=== PATIENT | male | born 2000 | race Caucasian/White ===

== ENCOUNTER 2023-12-29 07:33 | Outpatient (AMB) | payer OTHER, SELFPAY ==
[2023-12-29 07:35] VITALS: BP 114/66; PULSE 81; O2SAT 98; BMI 21.0
--- NOTE | 2023-12-29 07:35 | MHC.PC.OV ---
Vital Signs 12/29/23 07:35 Height 5 ft 10.4 in Weight 148 lb BMI 21.0 BP 114/66 Blood Pressure Location Rt brachial Position Sitting Pulse 81 Pulse Source Pulse Oximeter Pulse Oximetry (%) 98 Oxygen Delivery Method Room Air Intake Visit Reasons: SANITARY ENGINEER, establish care Intake Note: Pt is here today for a New patient visit PE. Allergies No Known Allergies Allergy (Verified 12/29/23 07:38) Medication List - Last Reconciled 12/29/23 by Rebeca Holt MD No Known Home Meds Tobacco use date assessed: 12/29/23 Dental Screening Dental Screen Date: 12/29/23 Did you have a dental visit in the last 12 months?: Yes Did you have a dental problem in the last 6 months where you did not have access to dental care?: No Was dental information given to patient?: Patient has dentist HPI SANITARY ENGINEER, establish care HPI Details Patient presents for new patient physical. 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 Right ankle pain resolved after physical therapy and a course of NSAIDs. Patient reports chronic lower back pain and stiffness worse in the morning occasionally lasting throughout the day. He denies joint swelling pain or stiffness, fever chills weight loss. Patient does not exercise regularly. PENDING SALE TO [facility] Surgical History No pertinent past surgical history Family History Father Hypertension Mother No problems noted. Social History (Updated 12/29/23 @ 08:48 by Rebeca Holt MD) Household Members Other:: lives with family, student at [employer] Housing: House Patient Tobacco Use Status: Never used Tobacco e-Cigarette/Vaping Use: Never Used service: No Current occupational status: employed and student Cognitive needs: No Hearing needs: No Vision needs: Yes Questionnaire PHQ-9 Over the last 2 weeks, how often have you been bothered by any of the following problems? 1. Little interest or pleasure in doing things: several days 2. Feeling down, depressed, or hopeless: several days 3. Trouble falling or staying asleep, or sleeping too much: nearly every day 4. Feeling tired or having little energy: more than half the days 5. Poor appetite or overeating: several days 6. Feeling bad about yourself - or that you are a failure or have let yourself or your family down: several days 7. Trouble concentrating on things, such as reading the newspaper or watching television: not at all 8. Moving or speaking so slowly that other people could have noticed. Or the opposite - being so fidgety or restless that you have been moving around a lot more than usual: not at all 9. Thoughts that you would be better off or of hurting yourself in some way: not at all Total score: 9 Depression Screening Interpretation: Negative Depression Screening Done: Yes Source: Developed by Drs. Wm Razo, Zahraa Driscoll, Garrett Sun and colleagues, with an educational bean from [employer]. Thrive Questionnaire Date Thrive assessed: 12/29/23 I am a: Patient What is your living situation today?: I have a steady place to live Within the past 12 months, did the food you bought not last and you didn't have the money to get more?: Never true Within the past 12 months, did you worry whether your food would run out before you got money to buy more?: Never true Do you have trouble paying for medicines?: No Do you have trouble getting transportation to medical appointments?: No Do you have trouble paying your heating and electricity bill?: No Do you have trouble taking care of your child, family member or friend?: No Do you have trouble with day-to-day activities such as bathing, preparing meals, shopping, managing finances, etc.?: No Are you currently unemployed and looking for a job?: I choose not to answer this question Are you interested in more education?: Yes Please select the resources that you would like help with: Housing/Jail Currently or been in a relationship where the following occur: No concerns reported THRIVE Score: 0 AUDIT C Alcohol Use Questionnaire (AUDIT-C) 1. How often do you have a drink containing alcohol?: 2-4 times a month 2. How many drinks containing alcohol do you have on a typical day when you are drinking?: 1 or 2 3. How often do you have six or more drinks on one occasion?: Never Total Score: 2 TAMIKO-7 AMB Questionnaire TAMIKO-7 Date TAMIKO - 7 assessed: 12/29/23 Feeling nervous, anxious, or on edge: 1 = Several days Not being able to stop or control worryin = Several days Worrying too much about different things: 1 = Several days Trouble relaxin = Several days Being so restless that it is hard to sit still: 0 = Not at all Becoming easily annoyed or irritable: 2 = More than half the days Feeling afraid as if something awful might happen: 1 = Several days Total TAMIKO-7 score (0-4 normal; 5-9 mild; 10-14 moderate; 15-21 severe): 7 Source: Developed by Drs. Wm Razo, Zahraa Driscoll, Garrett Sun and colleagues, with an educational bean from [employer]. Review of Systems Const All systems reviewed & are unremarkable except as noted in HPI and below Reports no additional complaints Eyes Reports no additional complaints ENT Reports no additional complaints Card Reports no additional complaints Resp Reports no additional complaints GI Reports no additional complaints Reports no additional complaints Physical exam (Primary Care) Vital Signs: Last Vital Signs Pulse 81 12/29/23 07:35 BP 114/66 12/29/23 07:35 Pulse Ox 98 12/29/23 07:35 Oxygen Delivery Method Room Air 12/29/23 07:35 BMI result Body Mass Index 21.0 Tobacco/Smoking Status: Tobacco use Status Tobacco use date assessed 12/29/23 12/29/23 07:41 Patient Tobacco Use Status Never used Tobacco 12/29/23 07:41 e-Cigarette/Vaping Use Never Used 12/29/23 07:41 PHQ-9: PHQ-9 Score PHQ-9: Total score 9 12/29/23 07:41 Depression Screening Interpretation: Negative Thrive Assessment: Date of Thrive Assessment Date Thrive assessed 12/29/23 12/29/23 07:41 Currently or been in a relationship where the following occur: No concerns reported Const General: no acute distress HENMT Head: Yes normal to inspection Ears: hearing grossly normal bilaterally General nose exam: Normal external nose present Face and sinus: Yes normal facial exam Mouth: Normal oral and palatal mucosa present Teeth and gingiva: dentition normal Throat: Yes posterior oropharynx normal Eyes General: appearance normal, both eyes and all related structures Neck Neck: Yes no lymphadenopathy and Yes supple Chest Chest palpation & inspection: normal inspection of the chest Resp Effort & Inspection: normal respiratory effort GI Inspection: Yes normal to inspection Palpation (GI): Soft to palpation Percussion: Yes normal to percussion Auscultation: normal bowel sounds Assessment and Plan Assessment & Plan (1) Annual physical exam: Code(s): Z00.00 - Encounter for general adult medical examination without abnormal findings Plan: Well-balanced diet regular physical activity discussed with the patient he will have a fasting blood work today. Patient declined STD testing (2) HLA B27 (HLA B27 positive): Code(s): Z15.89 - Genetic susceptibility to other disease Plan: Referred to Rheumatology (3) Lower back pain: Code(s): M54.50 - Low back pain, unspecified Plan: Patient will schedule physical therapy at [facility] and was advised to increase physical activity including walking biking and swimming. He declined prescription medication and will take naproxen as needed. Orders: Orders Comprehensive [place]. Panel Fast Today Z00.00 - Encounter for general adult medical examination without abnormal findings, Z15.89 - Genetic susceptibility to other disease C Reactive Protein Today Z00.00 - Encounter for general adult medical examination without abnormal findings, Z15.89 - Genetic susceptibility to other disease PT Evaluation and Treatment Today M54.50 - Low back pain, unspecified Complete Blood Count Auto Diff Today Z00.00 - Encounter for general adult medical examination without abnormal findings, Z15.89 - Genetic susceptibility to other disease Lipid Panel Today Z00.00 - Encounter for general adult medical examination without abnormal findings, Z15.89 - Genetic susceptibility to other disease UA w Microscopic Today Z00.00 - Encounter for general adult medical examination without abnormal findings, Z15.89 - Genetic susceptibility to other disease TSH reflex Free T4 Today Z00.00 - Encounter for general adult medical examination without abnormal findings, Z15.89 - Genetic susceptibility to other disease Referrals Rheumatology Referral M54.50 - Low back pain, unspecified, Z15.89 - Genetic susceptibility to other disease Coding Level of Care Code New Pt Prev Care 18-39yr(75145 Diagnoses Annual physical exam Z00.00 HLA B27 (HLA B27 positive) Z15.89 Lower back pain M54.50
== END 2023-12-29 08:56 | disposition home or self-care (01) ==
PROVIDERS: Visit Provider Internal Medicine
DX: Z00.00 Encounter for general adult medical examination without abnormal findings (principal); Z15.89 Genetic susceptibility to other disease; M54.50 Low back pain, unspecified
CPT/HCPCS: 99385

== ENCOUNTER 2023-12-29 08:30 | Outpatient (REF) | payer OTHER, SELFPAY ==
[2023-12-29 10:21] LABS: Appearance Urine Clear; Color Urine Yellow; Glucose Urine UA Negative (Negative); Leukocyte Esterase Urine Negative (Negative); Nitrite Urine Negative (Negative); Specific Gravity - Urine 1.025 (1.005-1.025); Urine Blood Negative (Negative); Urine Ketones Negative (Negative); Urine Protein Negative (Neg-Trace)
[2023-12-29 10:27] LABS: Bacteria Urine None Seen (None Seen); Hyaline Casts Urine 0-2 /LPF (0-2); RBC Urine 0-2 /HPF (0-2); Squamous Epithelial Cell Urine 0-2 /HPF (0-2); WBC Urine 0-5 /HPF (0-5)
[2023-12-29 10:27] LABS: MANUAL DIFF FLAG NO
[2023-12-29 10:38] LABS: Basophils Percent Auto 0.4 % (0-2); Eosinophils Absolute Auto 0.1 X10*3/uL (0.0-0.4); Eosinophils Percent Auto 1.4 % (0-4); Hemoglobin 14.3 g/dl (14.0-18.0); Imm Gran Abs Auto 0.01 X10*3/uL (0.00-0.03); Imm Gran Pct Auto 0.2 % (0.0-0.4); Lymphocytes Absolute Auto 1.8 X10*3/uL (1.2-4.9); Lymphocytes Percent Auto 35.2 % (20-40); Mean Corpuscular HGB Conc 32.5 g/dl (31.0-36.0); Mean Corpuscular Volume 83.2 fL (80.0-98.0); Mean Platelet Volume 9.4 fL (9.4-12.4); Monocytes Absolute Auto 0.6 X10*3/uL (0.1-1.2); Monocytes Percent Auto 11.8 % (2-11); Neutrophils Absolute Auto 2.6 x10*3/uL (2.0-8.3); Platelet Count 204 X10*3/uL (160-400); Red Blood Count 5.29 X10*6/uL (4.60-5.80); Red Cell Distribution Width 12.9 % (11.0-16.0); White Blood Count 5.2 X10*3/uL (4.8-10.8)
[2023-12-29 11:05] LABS: Alanine Aminotransferase 36 U/L (0-40); Albumin Level 4.4 g/dL (3.5-5.0); Alkaline Phosphatase 47 U/L (39-117); Anion Gap 10 (12-20); Aspartate Amino Transferase 21 U/L (5-37); Bilirubin Total 0.4 mg/dL (0.0-1.0); Blood Urea Nitrogen 13 mg/dL (9-16); C Reactive Protein 0.11 mg/dL (< or = 0.50); Calcium 8.8 mg/dL (8.4-10.2); Carbon Dioxide 28 mmol/L (22-29); Chloride 106 mmol/L (96-108); Cholesterol 151 mg/dL (<200); Estimated Glomerular Filt Rate > 60; Glucose Fasting 95 mg/dL (60-99); HDL Cholesterol 53 mg/dL (>40); LDL Cholesterol Calculated 89 mg/dL (<100); Potassium 3.8 mmol/L (3.3-5.1); Sodium 140 mmol/L (135-145); Total Protein 7.5 g/dL (6.5-8.0); Triglycerides 48 mg/dL (<150)
[2023-12-29 11:23] LABS: TSH reflex Free T4 2.53 uIU/mL (0.32-4.0)
== END 2023-12-29 08:31 | disposition home or self-care (01) ==
LOC: HO.HMGCLDS 08:30
PROVIDERS: PCP Internal Medicine; Visit Provider Internal Medicine
DX: Z00.00 Encounter for general adult medical examination without abnormal findings (principal); Z15.89 Genetic susceptibility to other disease
CPT/HCPCS: 36415; 80053; 80061; 81001; 84443; 85025; 86140

== ENCOUNTER 2024-02-13 12:40 | Outpatient (AMB) | payer OTHER, SELFPAY ==
[2024-02-13 12:45] VITALS: BP 110/74; PULSE 73; TEMP 36.9; O2SAT 98; BMI 21.2
--- NOTE | 2024-02-13 12:45 | MHC.OFFWIV ---
Intake Vital Signs 02/13/24 12:45 Height 5 ft 10 in Weight 148 lb BMI 21.2 BP 110/74 Blood Pressure Location Rt brachial Position Sitting Pulse 73 Pulse Source Pulse Oximeter Temp 98.4 F Temp Source Oral Pulse Oximetry (%) 98 Oxygen Delivery Method Room Air Intake Visit Reasons: EP-arthritis pain Intake Note: pt c/o arthritis pain in LT ankle. Started Monday Patient Tobacco Use Status: Never used Tobacco Allergies No Known Allergies Allergy (Verified 02/13/24 12:53) Do you need a note to return to daycare/school/sports/work: No HPI HPI Comments History of Present Illness Details Patient is a 23-year-old male with a past medical history of arthritis complaining of left ankle pain for 3 days. He states he has been titrating ibuprofen up to his last dose of 1200 mg today which seems to finally have made the pain go away, just prior to him walking in the exam room. He states that nothing seems to make it worse he denies any trauma, or injury. He has not tried wrapping it or using ice. He states he saw a private banker a few years ago and they tried multiple different medications until they found 1 that worked and then all of a sudden 1 day his pain went away and he has not been on any medications since then. [facility] Surgical History No pertinent past surgical history Family History Father Hypertension Mother No problems noted. Social History (Updated 12/29/23 @ 08:48 by Rebeca Holt MD) Household Members Other:: lives with family, student at [employer] Housing: House Patient Tobacco Use Status: Never used Tobacco e-Cigarette/Vaping Use: Never Used service: No Current occupational status: employed and student Cognitive needs: No Hearing needs: No Vision needs: Yes Review of Systems Const All systems reviewed & are unremarkable except as noted in HPI and below Physical Exam Vital Signs: Last Vital Signs Temp 98.4 F 02/13/24 12:45 Pulse 73 02/13/24 12:45 BP 110/74 02/13/24 12:45 Pulse Ox 98 02/13/24 12:45 Oxygen Delivery Method Room Air 02/13/24 12:45 BMI result Body Mass Index 21.2 Const General: cooperative, healthy appearing, comfortable and no acute distress Orientation/consciousness: patient oriented x3 HEENT Head: Yes normal to inspection General nose exam: Normal external nose present Face and sinus: Yes normal facial exam Eyes General: appearance normal, both eyes and all related structures Neck Neck: Yes normal visual inspection Resp Effort & Inspection: normal respiratory effort and able to speak in complete sentences Neuro General: patient oriented x3 Extrem Right lower extremity: ankle Details: normal to inspection, tenderness (2 cm below the knee no malleolus, somewhat posterior) Location: posteriorly; not of the lateral malleolus, not of the medial malleolus, not of the anterior talofibular ligament and not of the achilles tendon, no edema and normal ROM; no unusual warmth, no abrasions, no lacerations and no ecchymosis and foot Details: normal capillary refill, normal to inspection, toes with normal ROM, no edema, vascular exam Details: normal capillary refill and motor-sensory exam Details: light-touch normal; no tenderness, no unusual warmth, no abrasion, no laceration and no ecchymosis Assessment & Plan Assessment & Plan (1) Ankle pain, left: Code(s): M25.572 - Pain in left ankle and joints of left foot Plan: Gave patient Balta wrap, recommended in 8 hours that he start taking naproxen every 12 hours around the clock for the next 4-5 days and see if the pain subsides. Also sent a prescription for diclofenac in case the naproxen does not work. Also provided patient with an Balta bandage so he can rapid, recommended rest and ice. If no resolution in symptoms after trialing both medications and giving it some time, he should follow up with his PCP. Plan See above Medications: New diclofenac potassium 50 mg PO BID PRN 14 tabs 0RF pain Coding Level of Care Code Est Pt Level 3 (78524) Diagnoses Ankle pain, left M25.572
== END 2024-02-13 13:19 | disposition home or self-care (01) ==
PROVIDERS: PCP Internal Medicine; Visit Provider Physician Assistant
DX: M25.572 Pain in left ankle and joints of left foot (principal)
CPT/HCPCS: 99213

== ENCOUNTER 2025-05-21 14:34 | Outpatient (AMB) | payer OTHER, SELFPAY ==
[2025-05-21 14:52] VITALS: BP 110/70; PULSE 74; RESP 17; TEMP 36.8; O2SAT 98; BMI 21.5
--- NOTE | 2025-05-21 14:52 | MHC.PC.OV ---
Vital Signs 05/21/25 14:52 Height 5 ft 10 in Weight 150 lb BMI 21.5 BP 110/70 Blood Pressure Location Lt brachial Position Sitting Respiration 17 Pulse 74 Pulse Source Pulse Oximeter Temp 98.3 F Temp Source Oral Pulse Oximetry (%) 98 Oxygen Delivery Method Room Air Intake Visit Reasons: Foot pain Intake Note: Pt is here today for a sick visit. Pt c/o middle toe pain and swelling in his L foot. Allergies No Known Allergies Allergy (Verified 02/13/24 12:53) Medication List - Last Reconciled 05/21/25 by Rebeca Holt MD No Known Home Meds Tobacco use date assessed: 05/21/25 Dental Screening Dental Screen Date: 05/21/25 Did you have a dental visit in the last 12 months?: No Did you have a dental problem in the last 6 months where you did not have access to dental care?: No Was dental information given to patient?: Patient declined HPI Foot pain HPI Details PATIENT PRESENTS COMPLAINING OF 3RD LEFT TOE PAIN AND SWELLING ON AND OFF FOR 2 MONTHS after patient started walking a lot in [place] where he attends [employer] school at [employer]. Patient denies injury [facility] Medical History (Updated 05/21/25 @ 15:30 by Rebeca Holt MD) HLA B27 (HLA B27 positive) Annual physical exam Sprain of toe, third, left Surgical History No pertinent past surgical history Family History Father Hypertension Mother No problems noted. Social History Household Members Other:: lives with family, student at [employer] Housing: House Patient Tobacco Use Status: Never used Tobacco e-Cigarette/Vaping Use: Never Used service: No Current occupational status: employed and student Cognitive needs: No Hearing needs: No Vision needs: Yes Questionnaire PHQ-9 Over the last 2 weeks, how often have you been bothered by any of the following problems? 1. Little interest or pleasure in doing things: not at all 2. Feeling down, depressed, or hopeless: not at all 3. Trouble falling or staying asleep, or sleeping too much: not at all 4. Feeling tired or having little energy: not at all 5. Poor appetite or overeating: more than half the days 6. Feeling bad about yourself - or that you are a failure or have let yourself or your family down: several days 7. Trouble concentrating on things, such as reading the newspaper or watching television: several days 8. Moving or speaking so slowly that other people could have noticed. Or the opposite - being so fidgety or restless that you have been moving around a lot more than usual: not at all 9. Thoughts that you would be better off or of hurting yourself in some way: not at all Total score: 4 Depression Screening Interpretation: Negative Depression Screening Done: Yes 66531 - PHQ-9 Billing: Yes Source: Developed by Drs. Wm Razo, Zahraa Driscoll, Garrett Sun and colleagues, with an educational bean from [employer]. Thrive Questionnaire Date Thrive assessed: 05/21/25 I am a: Patient What is your living situation today?: I have a steady place to live Within the past 12 months, did the food you bought not last and you didn't have the money to get more?: Never true Within the past 12 months, did you worry whether your food would run out before you got money to buy more?: Never true Do you have trouble paying for medicines?: No Do you have trouble getting transportation to medical appointments?: No Do you have trouble paying your heating and electricity bill?: No Do you have trouble taking care of your child, family member or friend?: No Do you have trouble with day-to-day activities such as bathing, preparing meals, shopping, managing finances, etc.?: No Are you currently unemployed and looking for a job?: No Are you interested in more education?: Yes Please select the resources that you would like help with: None Currently or been in a relationship where the following occur: No concerns reported THRIVE Score: 0 AUDIT C Alcohol Use Questionnaire (AUDIT-C) 1. How often do you have a drink containing alcohol?: Never Total Score: 0 TAMIKO-7 AMB Questionnaire TAMIKO-7 Date TAMIKO - 7 assessed: 05/21/25 Feeling nervous, anxious, or on edge: 1 = Several days Not being able to stop or control worryin = More than half the days Worrying too much about different things: 3 = Nearly every day Trouble relaxin = Several days Being so restless that it is hard to sit still: 1 = Several days Becoming easily annoyed or irritable: 1 = Several days Feeling afraid as if something awful might happen: 2 = More than half the days Total TAMIKO-7 score (0-4 normal; 5-9 mild; 10-14 moderate; 15-21 severe): 11 Source: Developed by Drs. Wm Razo, Zahraa Driscoll, Garrett Sun and colleagues, with an educational bean from [employer]. TAMIKO-7 Assessment Billing TAMIKO-7 Assessment Tool: TAMIKO-7 Assessment 48347 Review of Systems Const All systems reviewed & are unremarkable except as noted in HPI and below Card Reports no additional complaints Resp Reports no additional complaints GI Reports no additional complaints Reports no additional complaints Physical exam (Primary Care) Vital Signs: Last Vital Signs Temp 98.3 F 05/21/25 14:52 Pulse 74 05/21/25 14:52 Resp 17 05/21/25 14:52 BP 110/70 05/21/25 14:52 Pulse Ox 98 05/21/25 14:52 Oxygen Delivery Method Room Air 05/21/25 14:52 BMI result Body Mass Index 21.5 Tobacco/Smoking Status: Tobacco use Status Tobacco use date assessed 05/21/25 05/21/25 15:05 Patient Tobacco Use Status Never used Tobacco 05/21/25 15:05 e-Cigarette/Vaping Use Never Used 05/21/25 14:52 PHQ-9: PHQ-9 Score PHQ-9: Total score 4 05/21/25 15:05 Depression Screening Interpretation: Negative Thrive Assessment: Date of Thrive Assessment Date Thrive assessed 05/21/25 05/21/25 15:05 Currently or been in a relationship where the following occur: No concerns reported HENMT Head: Yes normal to inspection Resp Effort & Inspection: normal respiratory effort Auscultation: clear to auscultation bilaterally Cardio Rhythm: regular rhythm Heart sounds: S1 normal heart sound present and S2 normal heart sound present Extrem Other: Reproducible tenderness over 3rd left toe no soft tissue swelling erythema warmth General: Yes no clubbing, cyanosis or edema Coding Level of Care Code Est Pt Level 3 (34771) Diagnoses Sprain of toe, third, left S93.505A Additional Codes TAMIKO-7 Assessment Billing - TAMIKO-7 Assessment Tool: TAMIKO-7 Assessment 61742 ([id number]) PHQ-9 - 22099 - PHQ-9 Billing: Yes ([id number]) Assessment & Plan Assessment & Plan (1) Sprain of toe, third, left: Code(s): S93.505A - Unspecified sprain of left lesser toe(s), initial encounter Category: Medical Plan: Obtain x-ray to rule out stress fracture supportive care including wearing supportive foot wear discussed with the patient Orders: Orders XR foot LT 2V Today S93.505A - Unspecified sprain of left lesser toe(s), initial encounter
--- OUTSIDE RECORDS SUMMARY | 2025-05-21 19:32 | XMS_ITS ---
Author Name [facility] Organization Unknown History of Medication Use Medication Directions Dispensed Refills Start Date End Date Stat No Medications Reported No Medications Reported completed penicillin V potassium 500 mg tablet Take 1 tablet twice a day by oral route for 10 days. Take 1 tablet twice a day by oral route for 10 days. 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 ProblemAct [facility]P Arthritis active 2018-09-12 ProblemAct [facility]LPVP Immunizations Vaccine Date Source Lot Number Status meningococcal B, OMV 08/27/2020 [facility]P [id number] comp leted Hep A, ped/adol, 2 dose 12/30/2019 [facility]P [id number] c ompleted meningococcal B, OMV 12/30/2019 [facility]P [id number] comp leted meningococcal MCV4P 11/22/2018 [facility]P [id number] compl eted HPV, quadrivalent 02/26/2014 [facility]P [id number] complet ed HPV, quadrivalent 10/22/2013 [facility]P [id number] complet ed HPV, quadrivalent 08/22/2013 [facility]P [id number] complet ed meningococcal MCV4P 08/14/2013 [facility]P [id number] compl eted Tdap 08/14/2013 [facility]P [id number] completed influenza, unspecified formulation 02/24/2009 C[facility]LPVP completed DTaP, unspecified formulation 08/29/2007 [facility]LPVP completed MMR 08/29/2007 [facility]P completed varicella 08/29/2007 [facility]PVP completed IPV 09/04/2006 [facility]P completed Hep A, unspecified formulation 03/17/2005 [facility]LPVP completed MMR 01/03/2005 [facility]P completed Hep A, unspecified formulation 09/28/2004 C[facility]LPVP completed pneumococcal conjugate PCV 7 07/22/2004 C[facility]LPVP completed DTaP, unspecified formulation 04/25/2004 C[facility]LPVP completed Hib, unspecified formulation 04/06/2004 C[facility]LPVP completed IPV 04/06/2004 C[facility]LPVP completed pneumococcal conjugate PCV 7 09/30/2003 C[facility]LPVP completed varicella 08/12/2003 C[facility]LPVP completed Hep B, unspecified formulation 04/08/2003 C[facility]LPVP completed DTaP, unspecified formulation 02/08/2003 C[facility]LPVP completed Hib, unspecified formulation 02/08/2003 C[facility]LPVP completed IPV 02/08/2003 C[facility]LPVP completed DTaP, unspecified formulation 2002 [facility]PVP completed Hib, unspecified formulation 2002 C[facility]LPVP completed IPV 2002 C[facility]LPVP completed BCG 2002 [facility]PVP completed DTaP, unspecified formulation 2002 C[facility]PVP completed Hib, unspecified formulation 2002 C[facility]LPVP completed IPV 2002 C[facility]LPVP completed Hep B, unspecified formulation 2002 C[facility]LPVP completed Hep B, unspecified formulation 2002 CTHLPVP completed Encounters Encounter Type Encounter Reason Primary Diagnosis Location Date Ambulatory [facility] 10/08/2022 Ambulatory [facility] 11/10/2021 Ambulatory [facility] 09/10/2021 Care Team Organization Name Specialty Phone Email Start Date End Da te [facility] 2021 [facility] 202111/10/2021
--- OUTSIDE RECORDS SUMMARY | 2025-05-21 19:32 | XMS_ITS | Clinical Summary ---
Author Organization [facility] ity Address [address] [place] [address] Care Team Providers Care [employer] Registrar Name Role Phone Unavailable Primary Care Provider Unavailabl e Social History Tobacco Use Types Packs/Day Years Used Date Smoking Tobacco: Never Assessed Sex and Gender Information Value Date Recorded Sex Assigned at Not on file Legal Sex Male 4:29 PM EST Gender Identity Not on file Sexual Orientation Not on file Plan of Treatment Health Maintenance Due Date Last Done Comments HPV Vaccines (1 - Male 3-dos e series) 2017 Meningococcal B Vaccine (1 o f 2 - Standard) 2018 DTaP,Tdap,and Td Vaccines (1 - Tdap) 2021 Hepatitis B Vaccines (1 of 3 - 19+ 3-dose series) 2021 Depression Screening 06/05/2024 COVID-19 Vaccine (1 - 2024-2 6 season) 2025 Influenza Vaccine (#1) 2025 RSV Immunization Adult Patie nts (1 - 1-dose 75+ series) 2077 HIB Vaccines Aged Out No longer eligi ble based on patient's age to complete this topic Hepatitis A Vaccines Aged Out No long er eligible based on patient's age to complete this topic IPV Vaccines Aged Out No longer eligi ble based on patient's age to complete this topic MMR Vaccines Aged Out No longer eligi ble based on patient's age to complete this topic Meningococcal ACWY Vaccine Aged Out N o longer eligible based on patient's age to complete this topic Pneumococcal Vaccine: Pediat rics (0 to 5 Years) and At-Risk Patients (6 to 49 Years) Aged Out No longer eligible b ased on patient's age to complete this topic RSV Immunization Patients Un jerzy 20 months Aged Out No longer eligible b ased on patient's age to complete this topic Varicella Vaccines Aged Out No longer eligible based on patient's age to complete this topic
== END 2025-05-21 15:35 | disposition home or self-care (01) ==
LOC: HO.HMCC 14:35
PROVIDERS: PCP Internal Medicine; Visit Provider Internal Medicine
DX: S93.505A Unspecified sprain of left lesser toe(s), initial encounter (principal)

== ENCOUNTER 2025-05-21 14:34 | Outpatient (REF) | payer OTHER, SELFPAY ==
--- NOTE | ~2025-05-21 | XR_ITS ---
EXAMINATION: XR FOOT, LEFT CLINICAL INFORMATION: S93.505A - Unspecified sprain of left lesser toe(s), initial encounter COMPARISON: None available. TECHNIQUE: AP, lateral, and oblique views of the left foot. FINDINGS: Metatarsals are intact. Phalanges are intact with normal alignment. Tarsal bones are intact. No lytic or blastic lesions. No subcutaneous edema. No gross joint effusion in the anterior tibiotarsal bursa. No osteolysis. No bony erosions. No metallic or radiopaque foreign body. Normal plantar arch. XR/XR foot LT 2V IMPRESSION: Normal x-ray, left foot. Electronically signed by: Hubert Avilez MD 05/21/2025 03:38 PM EST RP
--- OUTSIDE RECORDS SUMMARY | 2025-05-21 20:22 | XMS_ITS | Data Portability ---
Author Organization [place] - [facility] Address [address] [place] [address] Assessment Encounter Date Assessment Date Assessment LastModified by Organization Details LastModified Time 2020 2020 Folliculitis- will treat. call with concerns. recheck prn jyunis Not available 2020 17:17:14 08/27/2020 08/27/2020 Healthy 20 year old. Nl growth and dev arthritis- followed by rheum at [facility]- not on meds anymore- fu as needed_ Jay to call to see if needs fu Mild depression- suggested considering therapy jyunis Not available 08/27/2020 13:29:20 11/10/2021 11/10/2021 Healthy 21 year old. Nl growth and dev arthritis- followed by rheum at [facility]- not on meds anymore- has not had pain in years jyunis Not available 11/10/2021 10:01:00 10/08/2022 10/08/2022 22 yo here w/ strep pharyngitis w/ positive rapid strep. Rx sent for PCN. Discussed supportive care and return precautions. [email or web address] Not available 10/08/2022 10:49:19 Plan of Treatment Reminders Order Date Submit Date Provider Last Modified By Organization Details Last Modified Time Details Appointments None recorded. Lab rapid strep group A, throat 2022 023 [email or web address] 1 [facility], [address] [place] [address], [id number], 10:49:02 CT + NG DNA, PCR, urine 2021 022 [facility], [address] [place] [address], [id number], 2 10:26:20 rapid flu (A+B) 2021 022 [email or web address] [facility] [address] [place] [address], [id number], 2 10:18:34 rapid strep group A, throat 2021 022 [email or web address] [facility] [address] [place] [address], [id number], 2 10:18:34 culture, throat 2021 022 [email or web address] In-Office Order, Internal Use Only DO Not Attach Compendium DO Not Attach Compendium, Do Not Delete/merge, [id number] 10:18:34 CT + NG DNA, PCR, urine 2020 021 [facility], [address] [place] [address], [id number], 14:02:56 Referral None recorded. Procedures None recorded. Surgeries None recorded. Imaging None recorded. Medication Orders penicillin V potassium 500 mg tablet 2022 023 [facility]acy #[id number], [address], [place], [address], 3 10:49:04 cephalexin 500 mg capsule [email or web address] [facility]acy #[id number], [address], [place], [address], 13:12:23 Patient TargetsNo targets recorded. Patient Instructions Encounter Date Encounter Id Patient Instructions Last Modified By Organization Details Last Modified Time 08/27/2020 [id number] patient health questionnaire depression assessment* jyunis Not available 08/27/2020 13:29:57 immunization: what you need to know jyunis Not available 08/27/2020 13:29:57 09/10/2021 [id number] uri- flu negative-will r/o strep- does seem to be getting better-sx care- f/u if still febrile in 3 days - sooner prn [email or web address] Not available 09/10/2021 21:00:02 11/10/2021 [id number] program - 5 fruits & veggies jyunis Not available 11/10/2021 10:06:37 [id number] program - 1 hour of exercise jyunis Not available 11/10/2021 10:06:37 patient health questionnaire depression assessment* jyunis Not available 11/10/2021 10:06:38 immunization: what you need to know jyunis Not available 11/10/2021 10:06:37 We have discusse d that it is now time for the patient to work on selecting a new adult medicine provider. [email or web address] Not available 11/09/2021 14:23:06 Reason for Referral None Reported. Results Created Date Observation Date Name Description Value Unit Range Abnormal Flag Note LastModifiedBy Organization Detail LastModifiedTime 08/28/1908/28/2020 CT + NG DNA, PCR, urine urine chlamydia amp probe (neg) NEGAT RILEY No Chlam ydia Trach omati s RNA detec saran in this patie nt's sampl e (REFE RENCE RANGE /NORM AL VALUE : NOT DETEC SARAN) Note: This test uses trans cript ion- media saran ampli ficat ion metho d to detec t rRNA from C. Trach omati s Not Available [facility] (Centralized Electronic Ordering - All Locations) Patient Can Go To The Location Of Their Choice, [id number] 08/28/2020 09:12:12 08/28/1908/28/2020 CT + NG DNA, PCR, urine urine GC amp probe (neg) NEGAT RILEY No Neiss eria Gonor rhoea e RNA detec saran in this patie nt's sampl e (REFE RENCE RANGE /NORM AL VALUE : NOT DETEC SARAN) NOTE: This test uses trans cript ion-m ediat ed ampli ficat ion metho d to detec t rRNA from N.Jimmy orrho eae. A negat riley resul t does not precl ude infec tion. In the case of a negat riley urine resul t, testi ng of an endoc ervic al(fe male) or ureth ral (male ) speci men is recom pamella d if there is high clini carole suspi cion of infec tion. Due to very high sensi tivit y of Nucle ic Acid Ampli ficat ion Test, false posit riley resul ts may occur . There fore, speci men handl ing is extre christian impor tant. In patie nts in whom the disea se is unlik michell, addit ional sampl e for testi ng shoul d be consi dered after an initi al posit riley resul t. The perfo rmanc e rolando cteri stics of this test have not been evalu ated in child [place]. The Aptim a Combo 2 assay is not inten ded for the evalu ation of suspe cted sexua l abuse or for other medic o-leg al indic ation s. The order ing provi jerzy shoul d asses s if the patie nt had conse nsual sex witho ut risk of sexua l abuse . [facility] if neede d. Conta ct phone numbe r . Thera peuti c failu re or succe ss canno t be deter mined with the Aptim a Combo 2 assay since nucle ic acid may persi st follo wing appro priat e antim icrob ial thera py. The Cente rs for Disea se Contr ol and Preve ntion ([facility]) recom mends confi rmato ry retes ting using cultu re or a diffe rent nucle ic acid ampli ficat ion test when posit riley resul ts occur , if indic ated. Not Available [facility] (Centralized Electronic Ordering - All Locations) Patient Can Go To The Location Of Their Choice, [id number] 08/28/2020 09:12:12 08/28/19 21 08/27/2020 CT + NG DNA, PCR, urine Specimen Collec saran in office Not Available [facility] [address] [place] [address], [id number], 08/27/2020 11:48:33 08/28/19 21 08/27/2020 patie nt healt h quest ionna joy depre ssion asses sment * PHQ-9 positi ve Not Available [facility] [address] [place] [address], [id number], 08/27/2020 11:48:33 09/11/19 22 09/10/2021 rapid flu (A+B) Rapid Flu B negati ve Not Available [facility] [address] [place] [address], [id number], 09/10/2021 10:15:05 09/11/19 22 09/10/2021 rapid flu (A+B) Rapid Flu A negati ve Not Available [facility] [address] [place] [address], [id number], 09/10/2021 10:15:05 09/11/19 22 09/10/2021 cultu re, throa t Result 24 HR negati ve Not Available In-Office Order Internal Use Only DO Not Attach Compendium DO Not Attach Compendium, Do Not Delete/merge, [id number] 09/10/2021 08:22:17 09/11/19 22 09/10/2021 cultu re, throa t Result 48 HR negati ve Not Available In-Office Order Internal Use Only DO Not Attach Compendium DO Not Attach Compendium, Do Not Delete/merge, [id number] 09/10/2021 08:22:17 09/11/19 22 09/10/2021 rapid strep group A, throa t Rapid Strep negati ve Not Available [facility] [address] [place] [address], [id number], 09/10/2021 08:22:17 11/11/19 22 11/11/2021 URINE CHLAM YDIA GC AMP PROBE urine chlamydia amp probe (neg) NEGAT RILEY No Chlam ydia Trach omati s RNA detec saran in this patie nt's sampl e (REFE RENCE RANGE /NORM AL VALUE : NOT DETEC SARAN) Note: This test uses trans cript ion- media saran ampli ficat ion metho d to detec t rRNA from C. Trach omati s Not Available [facility] (Centralized Electronic Ordering - All Locations) Patient Can Go To The Location Of Their Choice, [id number] 11/11/2021 10:24:02 11/11/19 22 11/11/2021 URINE CHLAM YDIA GC AMP PROBE urine GC amp probe (neg) NEGAT RILEY No Neiss eria Gonor rhoea e RNA detec saran in this patie nt's sampl e (REFE RENCE RANGE /NORM AL VALUE : NOT DETEC SARAN) NOTE: This test uses trans cript ion-m ediat ed ampli ficat ion metho d to detec t rRNA from N.Jimmy orrho eae. A negat riley resul t does not precl ude infec tion. In the case of a negat riley urine resul t, testi ng of an endoc ervic al(fe male) or ureth ral (male ) speci men is recom pamella d if there is high clini carole suspi cion of infec tion. Due to very high sensi tivit y of Nucle ic Acid Ampli ficat ion Test, false posit riley resul ts may occur . There fore, speci men handl ing is extre christian impor tant. In patie nts in whom the disea se is unlik michell, addit ional sampl e for testi ng shoul d be consi dered after an initi al posit rilye resul t. The perfo rmanc e rolando cteri stics of this test have not been evalu ated in child [place]. The Aptim a Combo 2 assay is not inten ded for the evalu ation of suspe cted sexua l abuse or for other medic o-leg al indic ation s. The order ing provi jerzy shoul d asses s if the patie nt had conse nsual sex witho ut risk of sexua l abuse . [facility] if neede d. Conta ct phone javier zavala . Thera peuti c failu re or succe ss canno t be deter mined with the Aptim a Combo 2 assay since nucle ic acid may persi st follo wing appro priat e antim icrob ial thera py. The Cente rs for Disea se Contr ol and Preve ntion ([facility]) recom mends confi rmato ry retes ting using cultu re or a diffe rent nucle ic acid ampli ficat ion test when posit riley resul ts occur , if indic ated. Not Available [facility] (Centralized Electronic Ordering - All Locations) Patient Can Go To The Location Of Their Choice, [id number] 11/11/2021 10:24:02 11/11/19 22 11/10/2021 patie nt healt h quest ionna joy depre ssion asses sment * PHQ-9 negati ve Not Available [facility] [address] [place] [address], [id number], 11/09/2021 14:23:28 10/09/19 23 10/08/2022 rapid strep group A, throa t Rapid Strep positi ve Not Available [facility] [address] [place] [address], [id number], 10/08/2022 10:20:07 Result Notes None recorded. 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 08/14/2013 [facility] 4 14:01:20 Impetigo 35459605 Completed 08/14/2013 [facility] 4 14:01:20 Acute pharyngi tis 998644051 Completed 08/14/2013 [facility] 6 14:50:12 Acute pharyngi tis 387538362 Completed 08/28/2014 [facility] 6 14:50:12 Acute pharyngi tis 163507160 Completed 09/15/2015 [facility] 6 14:50:12 Scarlet fever 87495553 Completed 200710/04/2011 [facility] Available [facility] 03:02:10 Acute pharyngi tis 843917383 Completed 200710/04/2011 [facility] 6 14:50:12 Eruption 186949020 Completed 200710/04/2011 Not Available [facility] 3 03:02:10 Eczema 03681779 Completed 200808/14/2013 [facility] 4 14:01:20 Viral disease 80303190 Completed 200810/04/2011 Not Available [facility] 3 03:02:10 Wears glasses 274223837 Active 2016 [facility] 7 16:36:27 Arthriti s 9909609 Active 2018 Followed by Rheumato logy Edilson Schaffer MD [address] [place] [address], , [facility] 9 08:01:40 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 Medical Equipment None Reported. Allergies No known drug allergies Medications Name Sig Start Date Stop Date Status Note LastModified by Organization Details LastModified Time naproxen 375 mg tablet TAKE 1 TABLET BY MOUTH TWICE A DAY 11/22 completed Not Available Not Available Not Available azithromyci n 250 mg tablet TAKE 2 TABLETS BY MOUTH TODAY, THEN TAKE 1 TABLET DAILY FOR 4 DAYS 11/23 completed Not Available Not Available Not Available meloxicam 15 mg tablet TAKE 1/2 TO 1 TABLET BY MOUTH DAILY 05/22 completed Not Available Not Available Not Available penicillin V potassium 500 mg tablet TAKE 1 TABLET BY MOUTH TWICE A DAY FOR 10 DAYS active Not Available Not Available No t Available adapalene 0.1 % topical cream apply once daily to affected areas on dry skin 11/16 completed Not Available Not Available Not Available cephalexin 500 mg capsule TAKE 1 CAPSULE TWICE A DAY BY ORAL ROUTE FOR 10 DAYS. 08/27 completed Not Available Not Available Not Available oseltamivir 75 mg capsule TAKE 1 CAPSULE BY MOUTH TWICE A DAY 12/29 completed Not Available Not Available Not Available cephalexin 250 mg/5 mL oral suspension Take 5 mL 3 times a day by oral route for 10 days. 02/03 completed Not Available Not Available Not Available diclofenac sodium 75 mg tablet,gabriel yed release TAKE 1 TABLET BY MOUTH TWICE A DAY 05/22 completed Not Available Not Available Not Available diclofenac sodium 50 mg tablet,gabriel yed release TAKE 1 TABLET BY MOUTH TWICE A DAY WITH FOOD 12/29 completed Not Available Not Available Not Available Vitals Date Recorded Body weight Provider Name an d Address Organization Details Last Updated DateTime 2020 60172.04 g Stephanie Martínez R.N. [facility] 2020 16:17:29 Date Recorded Body height Body mass index (BMI) [Percentile] Per age and sex Body mass index (BMI) Body weight Systolic And Diastolic Provider Name and Address Organization Details Last Updated DateTime 08/27/2020 175.9 cm 16 % 19.5 kg/m2 14744.0 7 g 102/54 mm[Hg] Stephanie Martínez R.N. [facility] 13:22:26 Date Recorded Body height Body mass index (BMI) [Percentile] Per age and sex Body mass index (BMI) Body weight Systolic And Diastolic Provider Name and Address Organization Details Last Updated DateTime 11/10/2021 177.8 cm 5 % 18.9 kg/m2 99333.1 9 g 114/68 mm[Hg] Xiomara romo M.A. [facility] 09:54:54 Social History Question Answer Notes LastModified by Organizat ion Details LastModified Time Tobacco Smoking Status Never Smoker Zoe Wallace annabella, [facility] 09/08/2011 11:20:48 Have There Been Any Changes To Your Family Or Social Situation? No Information not available 11/23/2016 Hard Of Hearing Or Deaf In One Or Both Ears? No Information not available 11/23/2016 Legally Blind In One Or Both Eyes? No Information not available 11/23/2016 Parent's Marital Status Speaks Namibian Information not available 09/08/2011 Home Situation Both Parents Informat ion not available 09/08/2011 Siblings Names And Birthdates Ayala (M) 06/28/06 Information not available 09/08/2011 Year In School [employer] [email or web address] Informati on not available 11/10/2021 Parent's Name Madelyn Almanzar Information not available 04/09/2011 Parent's Name Catina Cody ras Informatio n not available 08/26/2014 DSS/DCF Custody No Information not available 11/23/2016 What Was The Date Of Your Most Recent Tobacco Screening? 11/22/2018 Information not available 12/27/2018 Are You Passively Exposed To Smoke? No [email or web address] Information not available 09/27/2012 Have You Recently Traveled Abroad? No [email or web address] Information not available 08/27/2020 Sex: Male Functional Status Question Answer Note LastModified by Organizat ion Details LastModified Time Do you use any illicit or recreational drugs? No Information not available 11/23/2016 Mental Status None recorded. Family History Relationship Description Onset Age of this Age Resolved Age Notes LastModified by Organization Details LastModified Time Father Hypercholest erolemia previo usly record ed as Elevat ed Choles terol ecardillo Not available 08/28/2014 09:07:49 Paternal Grandmother Heart disease htn--? on meds ecardillo Not available 08/28/2014 09:07:49 Maternal Grandmother Autoimmune disease previo usly record ed as Thyroi d or other Autoim mune Diseas es ecardillo Not available 08/28/2014 09:07:49 Maternal Grandmother Heart disease htn ecardillo Not available 2014 09:07:49 Maternal Grandmother Malignant neoplastic disease previo usly record ed as Cancer ecardillo Not available 08/28/2014 09:07:49 Mother Autoimmune disease previo usly record ed as Thyroi d or other Autoim mune Diseas es ecardillo Not available 08/28/2014 09:07:49 Mother Disorder of thyroid gland ecardillo Not available 2014 09:07:49 Notes:Updated 11/24 Medical History Condition Response ORTHOPEDIC PROBLEMS Y Immunizations Vaccine Type Date Status Note Provider Name and Address Organization Details Recorded Time DTaP, unspecified formulation 08/29/19 08 completed Not Available [facility] 04/09/2011 03:16:44 MMR 08/29/19 08 completed Not Available [facility] 04/09/2011 03:16:44 varicella 08/29/19 08 completed Not Available [facility] 04/09/2011 03:19:09 DTaP, unspecified formulation 12/05/19 03 completed Not Available [facility] 04/09/2011 03:18:43 DTaP, unspecified formulation 04/25/20 04 completed Not Available [facility] 04/09/2011 03:18:43 DTaP, unspecified formulation 10/13/19 03 completed Not Available [facility] 04/09/2011 03:18:43 DTaP, unspecified formulation 02/09/20 03 completed Not Available [facility] 04/09/2011 03:18:43 IPV 12/05/19 03 completed Not Available [facility] 04/09/2011 03:19:20 IPV 04/06/20 04 completed Not Available [facility] 04/09/2011 03:18:43 IPV 10/13/19 03 completed Not Available [facility] 04/09/2011 03:18:43 IPV 02/09/20 03 completed Not Available [facility] 04/09/2011 03:18:43 MMR 01/04/20 05 completed Not Available [facility] 04/09/2011 03:19:20 Hib, unspecified formulation 12/05/19 03 completed Not Available [facility] 04/09/2011 03:18:43 Hib, unspecified formulation 04/06/20 04 completed Not Available [facility] 04/09/2011 03:18:43 Hib, unspecified formulation 10/13/19 03 completed Not Available [facility] 04/09/2011 03:18:43 Hib, unspecified formulation 02/09/20 03 completed Not Available [facility] 04/09/2011 03:18:43 Hep B, unspecified formulation 10/08/19 03 completed Not Available [facility] 04/09/2011 03:19:20 Hep B, unspecified formulation 08/09/19 03 completed Not Available [facility] 04/09/2011 03:18:43 Hep B, unspecified formulation 04/08/20 03 completed Not Available [facility] 04/09/2011 03:18:43 varicella 08/12/19 04 completed Not Available [facility] 04/09/2011 03:18:43 pneumococcal conjugate PCV 7 07/22/19 05 completed Not Available [facility] 04/09/2011 03:19:20 Hep A, unspecified formulation 03/17/20 05 completed Not Available [facility] 04/09/2011 03:18:43 pneumococcal conjugate PCV 7 09/30/19 04 completed Not Available [facility] 04/09/2011 03:18:43 Hep A, unspecified formulation 09/29/19 05 completed Not Available [facility] 04/09/2011 03:18:43 BCG 10/18/19 03 completed Not Available [facility] 04/09/2011 03:19:20 Tdap 08/15/19 14 completed Not Available [facility] 06/22/2019 02:33:46 meningococcal MCV4P 08/15/19 14 completed Not Available [facility] 06/22/2019 02:33:34 HPV, quadrivalent 08/23/19 14 completed Not Available [facility] 06/22/2019 02:34:11 HPV, quadrivalent 10/23/19 14 completed Not Available [facility] 06/22/2019 02:34:12 HPV, quadrivalent 02/27/20 14 completed Not Available [facility] 06/22/2019 02:34:14 IPV 09/05/19 07 completed Sadia Escobar, [facility] 08/28/2014 09:09:32 influenza, unspecified formulation 02/25/20 09 completed Not Available [facility] 04/09/2011 03:17:07 meningococcal MCV4P 11/23/19 19 completed Not Available [facility] 06/22/2019 02:39:22 Hep A, ped/adol, 2 dose 12/30/19 20 completed Edilson Schaffer MD [address] [place] [address], , [facility] 12/30/2019 14:46:38 meningococcal B, OMV 12/30/19 20 completed Edilson Schaffer MD [address] [place] [address], , [facility] 12/30/2019 14:46:38 Influenza, split virus, quadrivalent, PF 08/28/19 21 cancelled patient objection Edilson Schaffer MD [address] [place] [address], , [facility] 08/27/2020 13:29:57 meningococcal B, OMV 08/28/19 21 completed Sadia Del Rio, [facility] 08/27/2020 13:42:59 Past Encounters Encounter ID Performer Location Encounter Start Date Encounter Closed Date Diagnosis/Indication Diagnosis SNOMED-CT Code Diagnosis ICD10 Code Diagnosis IMO Codes Diagnosis Note [id number] Marquita Gerardo MD [facility] [address] [place] [phone] 08/29/2007 10:58:39 08/29/2007 11:52:41 [id number] Marquita Gerardo MD [facility] [address] [place] [id number] 4 08/29/2007 10:58:39 08/29/2007 11:52:41 [id number] Reji Sam MD [facility] [address] [place] [phone] 4 09/11/2007 10:41:37 09/11/2007 11:20:58 [id number] Jair Michael MD [facility] [address] [place] [phone] 4 10/04/2007 10:42:23 10/04/2007 11:00:18 [id number] Jair Michael MD [facility] [address] [place] [address] 09/09/2008 09:45:31 09/09/2008 10:38:44 [id number] Jair Michael MD [facility] [address] [place] [address] 08/13/2009 14:21:13 08/13/2009 15:12:38 [id number] Jair Michael MD [facility] [address] [place] [address] 08/16/2010 10:12:48 08/16/2010 10:33:21 [id number] Cathy Menendez MD [facility] [address] [place] [address] 09/08/2011 10:57:50 09/08/2011 12:32:05 [id number] Jair Michael MD [facility] [address] [place] [address] 10/04/2011 09:14:50 10/04/2011 10:51:17 [id number] Jair Michael MD [facility] [address] [place] [id number] 4 01/25/2012 12:48:16 01/25/2012 13:31:17 [id number] Cathy Menendez MD [facility] [address] [place] [id number] 4 04/23/2012 15:24:10 04/23/2012 15:56:59 [id number] Jair Michael MD [facility] [address] [place] [address] 09/27/2012 14:59:32 09/27/2012 16:48:10 [id number] Jair Michael MD [facility] [address] [place] [address] 02/18/2013 10:51:17 02/18/2013 11:44:29 Acute pharyngitis 998486744 [id number] Jair Michael MD [facility] [address] [place] [address] 4 08/14/2013 13:48:32 08/14/2013 16:13:04 Well child [id number] Cathy Menendez MD [address] [address] 08/22/2013 16:16:55 08/22/2013 16:22:48 Administration of viral vaccine 64798874 Shot only HPV [id number] Jair Michael MD [facility] [address] [place] [address] 4 10/22/2013 15:55:21 10/22/2013 16:02:02 Administration of viral vaccine 39761952 Shot only HPV [id number] Jair Michael MD [facility] [address] [place] [address] 4 02/10/2014 16:26:53 02/10/2014 16:42:31 Acute pharyngitis 184944340 [id number] Cathy Menendez MD [address] [address] 02/26/2014 15:05:48 02/26/2014 15:40:42 Administration of viral vaccine 21201211 Shot only HPV [id number] Jair Michael MD [facility] [address] [place] [address] 4 08/28/2014 08:56:14 08/28/2014 09:38:16 Well child 792659120 [id number] Jair Michael MD [address] [address] 09/08/2014 10:30:48 09/08/2014 10:52:20 Acute pharyngitis 203162928 [id number] Jair Michael MD [address] [address] 09/15/2015 14:18:28 09/15/2015 15:37:21 Well child 514749479 Z00.129 [id number] Marquita Gerardo MD [facility] [address] [place] [id number] 4 07/16/2016 09:50:02 07/16/2016 10:21:54 Atypical pneumonia [id number] J18.9 1.5 weeks cough not much congestion but + post tussive gagging and paroxysms of cough- poor sleeping due to cough and appears very tiredlikel y atypical pneumonia- will treat as such- if not improved check CXR [id number] Jair Michael MD [address] [address] 11/23/2016 16:27:25 11/23/2016 16:54:42 Well child 025939821 Z00.129 [id number] Jair Michael MD [address] [address] 02/20/2017 13:23:17 02/20/2017 13:51:41 Acute pharyngitis 470907686 J02.9 Streptococ carole sore throat 09504799 J02.0 [id number] Jair Michael MD [address] [address] 03/09/2017 16:17:12 03/09/2017 16:40:19 Acute pharyngitis 295044165 J02.9 Acne vulgaris 69993978 L 70.0 [id number] Jacqueline Conti MD [address] [address] 04/01/2017 11:05:51 04/01/2017 11:47:55 Acute pharyngitis 028276541 J02.9 [id number] Jair Michael MD [address] [address] 4 11/16/2017 16:30:46 11/16/2017 17:01:51 Well child 829787234 Z00.129 Normal weight 84021944 Z 68.52 [id number] Edilson Schaffer MD [address] [address] 03/01/2018 13:28:24 03/01/2018 14:45:46 Swelling / lump finding 787799453 R22.0 Near syncope 654868584 R 55 Achilles tendinitis 1165 4001 M76.61 [id number] Edilson Schaffer MD [facility] [address] [address] 4 11/22/2018 11:09:53 11/22/2018 12:36:30 Active or passive immunization 515135046 Z23 Well child 963220229 Z00 .129 Normal weight 10221854 Z 68.20 Arthritis 7690891 M19.90 [id number] Edilson Schaffer MD [address] [address] 4 05/22/2019 16:42:03 05/22/2019 16:57:08 Acute pharyngitis 535955976 J02.9 [id number] Edilson Schaffer MD [address] [address] 4 12/30/2019 13:57:05 12/30/2019 14:49:18 Well child 729180686 Z00.129 Normal weight 90333818 Z 68.52 Exercises education, guidance, and counseling 924711967 Z71.82 Diet education 28566083 Z71.3 Active or passive immunization 840411681 Z23 [id number] Edilson Schaffer MD [address] [address] 2020 16:11:05 2020 17:17:39 Folliculitis 61897548 L73.9 [id number] Edilson Schaffer MD [address] [address] 08/27/2020 13:10:30 08/27/2020 13:58:38 Active or passive immunization 078904208 Z23 Adult [facility] th examination 195469935 Z00.00 Normal bod y mass index 09800195 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 [id number] Susi Rutledge MD [address] [address] 09/10/2021 09:34:22 09/10/2021 13:12:56 Acute pharyngitis 184184295 J02.9 Viral syndrome 840018512 B34.9 [id number] Edilson Schaffer MD [address] [place] [address] 11/10/2021 09:47:59 11/10/2021 10:22:03 Adult health examination 668146112 Z00.00 Diet education 85059426 Z71.3 Exercises education, guidance, and counseling 931085565 Z71.82 Normal bod y mass index 78103753 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 500496034 M08.20 [id number] PEGGY JONES MD [facility] [address] [facility] [address] 10/08/2022 10:19:02 10/08/2022 10:53:00 Acute pharyngitis 630822860 J02.9 Health Concerns Section Related Observation LastModified by Organization Detai ls LastModified Time None Recorded Concern Status LastModified by Organization Details LastModified Time None Recorded Advance Directives Directive None Recorded Payers Insurance Date Sequence Insurance Name Policy Number Policy Oleary Covered Member ID Oleary Member ID Guarantor Name 08/28/2017 1 [facility] (HMO) [id number] Catina Cody [id number] Catina Cody 01/18/2014 1 [place] [id number] Liz Cody [id number] Catina Cody 01/18/2014 1 [facility] (O) [id number] Catina Cody [id number] Catina Cody 01/18/2014 1 [place] (HMO) [id number] Rand Cody [id number] Catina Cody 09/27/2012 1 *SELF PAY* Dank Cody 06/17/2016 1 [facility] [place] [id number] Catina Cody [id number] Catina Cody 10/08/2022 1 [place] [facility] [place] [id number] Catina Cody Notes Date Note Type Note Provider Name and Address Organization Details Recorded Time 2020 text/html RS Sick Visit Narrative HistoryReported by PatientShaved w/ bad razor 4 days ago. Noticed red, swollen pimples on face and neck about 4 days ago. + itchy. Not oozing or bleeding. Afebrile. Normal energy. Sleeping well. Normal appetite. Washing face & applying lotion Q day. Tried applying olive oil w/ some relief. Pt afebrile. No ill symptoms in >10 days. No known Covid 19 exposure. No travel out of [place] in > 2 weeks. Edilson Schaffer MD [address] [place] [address], , [facility] 2020 17:17:18 08/27/2020 text/html Pt afebrile. No ill symptoms in >10 days. No known Covid 19 exposure. No travel out of [place] in > 2 weeks. Edilson Schaffer MD [address] [place] [address], , [facility] 08/27/2020 13:57:57 09/10/2021 text/html RS Sick Visit Narrative HistoryReported by PatientST, congestion & Cough started 3 days ago. Cough sounds dry. 3 days ago had chest pain/body aches that resolved after one day.Fevers started 2 days ago- Tmax 100.7 temporally. 2 days ago was so weak couldn't get out of bed.Temp 99.8 today.Cough is getting better. Denies ear pain. No N/V/D. No sudden loss of taste or smell. Using chloraseptic spray. no OTC medications given. Decreased appetite. Not sleeping well. Energy level low, No known sick contacts.at homeCovid test 2 days ago and yesterday were both negative. Pt is fully vaccinated and boosted against covid. Susi Rutledge MD [address] [place] [address], , [facility] 09/10/2021 21:00:09 11/10/2021 text/html Pt afebrile. No ill symptoms in >10 days. No known Covid 19 exposure. No travel out of [place] in > 2 weeks. Edilson Schaffer MD [address] [place] [address], , [facility] 11/10/2021 10:21:35 10/08/2022 text/html RS Sick Visit Narrative HistoryReported by PatientPt here for a ST, nasal congestion, and HERNANDEZ that started 3 days ago. Afebrile. No cough. No ear pain. No recent N/V/D. Appetite normal, still drinking fluids. Energy level normal.Last dose of Acetaminophen was last night. No known sick contacts. No at home Covid tests performed. PEGGY JONES MD [address] [place] [address], [phone], [facility] 10/08/2022 10:49:29
== END 2025-05-21 14:35 | disposition home or self-care (01) ==
LOC: HO.HMGCX 14:34
PROVIDERS: PCP Internal Medicine; Visit Provider Internal Medicine
DX: S93.505A Unspecified sprain of left lesser toe(s), initial encounter (principal)
CPT/HCPCS: 73620; 96127; 99212

== ENCOUNTER → 2025-05-21 15:24 | Outpatient (BNV) | payer OTHER, SELFPAY | PROVIDERS: PCP Internal Medicine; Visit Provider Radiology Diagnostic Radiology | DX: S93.505A Unspecified sprain of left lesser toe(s), initial encounter (principal) | CPT/HCPCS: 73620 ==